=== PATIENT | female | born 2000 | race Caucasian/White ===

== ENCOUNTER 2021-07-02 13:58 | Emergency (ER) | payer OTHER, SELFPAY ==
[2021-07-02 13:59] VITALS: BP 95/72; PULSE 102; RESP 18; TEMP 36.3; BMI 21.9
--- NOTE | 2021-07-02 14:46 | EDS_ITS ---
HPI History of Present Illness Chief Complaint: Lower Extremity Injury Informant: patient Narrative Narrative: Patient was playing soccer and got tangled up with another player. She is not exactly sure how her ankle bent but she has soreness in her left ankle. She has had a right ACL repair but her knee is not hurting. No other injury. She did not hit her head. She is not on anticoagulation. Pressing makes it worse and rest makes it better. Past medical history: No active disease Medications control No known allergies Surgery: Left ACL repair Non-smoker [facility] Medical History ACL tear Home Medications norethindrone-e.estradiol-iron [Lo Loestrin Fe] 1 tab PO DAILY 07/02/21 [History Last Taken Unknown] Allergy/AdvReac Type Severity Reaction Status Date / Time No Known Allergies Allergy Verified 07/02/21 14:03 Social History Smoking Status: Never smoker ROS ROS ED Eyes Eyes: Denies blurry vision Cardiovascular Cardiovascular: Denies chest pain Respiratory/Chest Respiratory/Chest: Denies cough or dyspnea Gastrointestinal Gastrointestinal: Denies nausea or vomiting Musculoskeletal Musculoskeletal: Reports other Details: Left ankle area pain. See history of present illness. ; Denies back pain or neck pain Integumentary Denies abscess, Abrasions or rash Neurologic Neurologic: Denies paresthesias or weakness Hematologic/Lymphatic Hematologic/Lymphatic: Denies easy bleeding or easy bruising EXAM Physical Exam Const Vital Signs: 07/02/21 13:59 Temperature 97.3 F L Temperature Source Temporal Pulse Rate 102 H Respiratory Rate 18 Blood Pressure 95/72 Blood Pressure Mean 79 Positive well nourished and well developed General Appearance ED: well developed and NAD HEENT normocephalic and atraumatic Neck supple Resp normal respiratory effort Extremity Extremity Narrative: Patient does have some swelling over the lateral malleolus. No tenderness at the knee or proximal fibula. Achilles is intact by palpation and Hernandez test. No tenderness to calcaneus. No mid or forefoot tenderness. She has some tenderness at the medial malleolus even though there is no swelling there. No deformities noted. Distal pulses sensation intact. Neuro oriented x3 and no sensory deficits noted Sensorium / Orientation: alert Psych mental status grossly normal Skin no wounds Lesions: no lesions Rashes: no rashes Trauma: Negative for abrasion or laceration MDM MDM MDM Narrative Medical decision making narrative: Patient's three-view x-ray of her ankle looked at by me and read by radiology shows no acute process she will be placed in an air cast splint. Ice rest elevation and recheck by her strainer cleaner or physician. This may need repeat imaging if still sore over the next week or 2. Radiography Diagnostic Testing: Clinical Impression(s) from Imaging Studies Ankle X-Ray 07/02/21 14:50 IMPRESSION: No acute bony abnormality. at 1516 Reported and signed by: Remy Matias MD Electronically Signed: Remy Matias MD at 15:15 EDT Tel , Service support , Discharge Plan Triage Chief Complaint: Lower Extremity Injury ED Provider: Jermaine Fernandez Dx/Rx/DC Orders Clinical Impression: Injury of ankle, left Instructions: ED Ankle Sprain (Adult) Prescriptions: No Action Lo Loestrin Fe 1 mg-10 mcg (24)/10 mcg (2) Tablet 1 tab PO DAILY RF: 0 Referrals: Vikram Hollis DO [STAFF PHYSICIAN] - 1 Week if not improving Disposition Disposition: Home, Self Care
--- NOTE | 2021-07-02 14:50 | RAD_ITS ---
HISTORY: trauma, injury EXAMINATION/TECHNIQUE: XR Ankle Min 3 Views: COMPARISON: None FINDINGS: BONES/JOINTS: No acute fracture or dislocation. Preservation of the joint spaces. SOFT TISSUES: Lateral ankle swelling. No radiopaque foreign body. RAD/Ankle min 3 Views IMPRESSION: No acute bony abnormality. at 1516 Reported and signed by: Remy Matias MD Electronically Signed: Remy Matias MD at 15:15 EDT Tel , Service support ,
== END 2021-07-02 16:49 | disposition home or self-care (01) ==
PROVIDERS: Emergency Provider Emergency Medicine
DX: S99.912A Unspecified injury of left ankle, initial encounter (principal); W03.XXXA Other fall on same level due to collision with another person, initial encounter; Y93.66 Activity, soccer; Y92.9 Unspecified place or not applicable
CPT/HCPCS: 73610; 99283